=== PATIENT | female | born 1980 | race African-American/Black ===

== ENCOUNTER 2021-01-05 11:13 | Emergency (ER) | payer MEDICAID ==
[~2021-01-05] VITALS: Ht 167.6 cm; Wt 80.0 kg
[2021-01-05 11:18] VITALS: BP 139/97
[2021-01-05] MEDS ORDERED: IBUPROFEN 600MG TABLET PO ONE (13:15)
[2021-01-05] MEDS ORDERED: IBUP-2029 MT (14:13)
[2021-01-05] MEDS ORDERED: HYDR-4346 MT (14:13)
[2021-01-05] MEDS ORDERED: HYDROCODONE/ACETAMINOPHEN 5/325MG TABLET PO ONE (14:15)
== END 2021-01-05 15:16 | disposition home or self-care (01) ==
LOC: ER 11:13
DX: S92.352A Displaced fracture of fifth metatarsal bone, left foot, initial encounter for closed fracture (principal); I10 Essential (primary) hypertension; Z88.0 Allergy status to penicillin; W50.2XXA Accidental twist by another person, initial encounter; Y93.89 Activity, other specified; Y92.89 Other specified places as the place of occurrence of the external cause; Y99.8 Other external cause status
CPT/HCPCS: 73630; 99283

== ENCOUNTER 2024-10-23 12:50 | Emergency (ER) | payer OTHER ==
[~2024-10-23] VITALS: Ht 167.6 cm; Wt 66.0 kg
[~2024-10-23 12:50] MED LIST: HYDR-4346 MT; IBUP-2029 MT
[2024-10-23 13:00] VITALS: O2SAT 100
[2024-10-23] MEDS ORDERED: METH-653 MT (13:41)
[2024-10-23] MEDS ORDERED: LIDO700A30 TP (13:41)
[2024-10-23] MEDS ORDERED: IBUP-2029 MT (13:41)
[2024-10-23 14:19] VITALS: BP 164/95; PULSE 67; RESP 16; TEMP 37.1; O2SAT 100
== END 2024-10-23 14:20 | disposition home or self-care (01) ==
LOC: ER 12:50
DX: S13.4XXA Sprain of ligaments of cervical spine, initial encounter (principal); S33.5XXA Sprain of ligaments of lumbar spine, initial encounter; Z88.0 Allergy status to penicillin; V43.52XA Car driver injured in collision with other type car in traffic accident, initial encounter; Y93.89 Activity, other specified; Y92.410 Unspecified street and highway as the place of occurrence of the external cause; Y99.8 Other external cause status
CPT/HCPCS: 99283